=== PATIENT | female | born 1975 | race American Indian/Alaskan Native ===

== ENCOUNTER 2017-06-14 13:58 | Inpatient (IN) | payer MEDICAID ==
[2017-06-14 15:38] LABS: BUN/Creatinine Ratio 12; Blood Urea Nitrogen 6 mg/dL (7-17); Calcium 9.5 mg/dL (8.4-10.2); Hemolysis Index 34
--- NOTE | 2017-06-14 15:42 | Emergency Department Report ---
ED Neuro Deficit HPI - General Chief Complaint: Neuro Symptoms/Deficit Stated Complaint: LT SIDE NUMBNESS/HEADACHE Time Seen by Provider: 06/14/17 15:20 Source: patient Mode of arrival: Stretcher Limitations: No Limitations - History of Present Illness Initial Comments: Patient is a 41-year-old female presents to emergency room with left-sided facial numbness along with left sided arm and leg numbness and weakness that started at 1:30 PM. Patient also complains of a headache of 6 out of 10. Patient states is the numbness to her mouth is making it hard to speak. He denies chest pain or shortness of breath. Patient denies fever and chills. -: Sudden, hour(s) (started at 1:30 PM) Location: speech, left face, dysarthria, left arm, left leg Presenting Symptoms: Present: Weak/Paralyzed One Side, Sudden, Severe Headache, Facial Droop/Numbness Place: work Severity: severe Quality: weak, numb, tingling Improves With: none Worsens With: none On Anticoagulants: No Context: sudden onset Associated Symptoms: headaches, weakness Treatments Prior to Arrival: none - Related Data Allergies/Adverse Reactions: Allergies Allergy/AdvReac Type Severity Reaction Status Date / Time No Known Allergies Allergy Unverified 06/14/17 14:39 ED Review of Systems ROS: Stated complaint: LT SIDE NUMBNESS/HEADACHE Other details as noted in HPI Comment: All other systems reviewed and negative Constitutional: denies: chills, fever Eyes: denies: eye pain, eye discharge, vision change ENT: denies: ear pain, throat pain Respiratory: denies: cough, shortness of breath, wheezing Cardiovascular: denies: chest pain, palpitations Endocrine: no symptoms reported Gastrointestinal: denies: abdominal pain, nausea, diarrhea Genitourinary: denies: urgency, dysuria, discharge Musculoskeletal: denies: back pain, joint swelling, arthralgia Skin: denies: rash, lesions Neurological: headache, weakness, numbness, paresthesias Psychiatric: denies: anxiety, depression Hematological/Lymphatic: denies: easy bleeding, easy bruising ED Past Medical Hx - Past Medical History Previous Medical History?: Yes Additional medical history: Thrombocytopenia. unable to take aspirin - Surgical History Past Surgical History?: No - Family History Family history: no significant - Social History Smoking Status: Never Smoker Substance Use Type: None ED Neuro Physical Exam - General Limitations: No Limitations General appearance: alert, in no apparent distress Suspected Stroke: Yes - Head Head exam: Present: atraumatic, normocephalic - Eye Eye exam: Present: normal appearance, PERRL, EOMI Pupils: Present: normal accommodation - ENT ENT exam: Present: normal exam, mucous membranes moist - Neck Neck exam: Present: normal inspection - Respiratory Respiratory exam: Present: normal lung sounds bilaterally. Absent: respiratory distress - Cardiovascular Cardiovascular Exam: Present: regular rate, normal rhythm. Absent: systolic murmur, diastolic murmur, rubs, gallop - GI/Abdominal GI/Abdominal exam: Present: soft, normal bowel sounds - Extremities Exam Extremities exam: Present: normal inspection, other (left-sided weakness noted with arms and legs) - Back Exam Back exam: Present: normal inspection - Neurological Exam Neurological exam: Present: alert, oriented X3, CN II-XII intact, reflexes normal - NIHSS Assessment Interval: Baseline 1a. Level of Consciousness: alert 1b. LOC Questions: answers correctly 1c. LOC Commands: performs tasks correctly 2. Best Gaze: normal 3. Visual: no visual loss 4. Facial Palsy: normal symmetrical movement 5b. Motor Arm Right: no drift 5a. Motor Arm Left: no drift 6a. Motor Leg Left: drift 6b. Motor Leg Right: no drift 7. Limb Ataxia: absent 8. Sensory: normal 9. Best Language: no aphasia 10. Dysarthria: mild/moderate dysarthria 11. Extinction/Inattention: no abnormality Total Score: 2 Stroke Severity: Minor Stroke - Psychiatric Psychiatric exam: Present: normal affect, normal mood - Skin Skin exam: Present: warm, dry, intact, normal color. Absent: rash ED Course Vital Signs 06/14/17 06/14/17 06/14/17 14:12 14:20 14:59 Temperature 98.3 F 98.6 F Pulse Rate 89 87 Respiratory 18 18 Rate Blood Pressure 129/83 129/83 Blood Pressure [Left] O2 Sat by Pulse 100 100 Oximetry 06/14/17 06/14/17 06/14/17 15:02 15:05 16:07 Temperature 98.9 F Pulse Rate 80 65 Respiratory 19 19 17 Rate Blood Pressure Blood Pressure 157/93 [Left] O2 Sat by Pulse 99 99 98 Oximetry 02/23/18 02/23/18 17:00 17:23 Temperature Pulse Rate 78 Respiratory 13 Rate Blood Pressure 150/94 111/74 Blood Pressure [Left] O2 Sat by Pulse 96 Oximetry - Reevaluation(s) Reevaluation #1: Reach neurologist consulted. Dr. Mcgee called back with recommendations of a stroke workup in the hospital but believes it is most likely a complex migraine. 06/14/17 17:25 - Lab Data Result diagrams: 06/14/17 14:53 06/14/17 14:53 Lab Results 06/14/17 06/14/17 06/14/17 Range/Units 14:53 14:53 14:53 WBC 5.1 (4.5-11.0) K/mm3 RBC 4.82 (3.65-5.03) M/mm3 Hgb 13.5 (10.1-14.3) gm/dl Hct 40.7 (30.3-42.9) % MCV 84 (79-97) fl MCH 28 (28-32) pg MCHC 33 (30-34) % RDW 13.4 (13.2-15.2) % Plt Count 96 L (140-440) K/mm3 Lymph % (Auto) 38.1 H (13.4-35.0) % [place] % (Auto) 7.3 (0.0-7.3) % Eos % (Auto) 2.4 (0.0-4.3) % Baso % (Auto) 0.5 (0.0-1.8) % Lymph # 2.0 (1.2-5.4) K/mm3 [place] # 0.4 (0.0-0.8) K/mm3 Eos # 0.1 (0.0-0.4) K/mm3 Baso # 0.0 (0.0-0.1) K/mm3 Seg Neutrophils % 51.7 (40.0-70.0) % Seg Neutrophils # 2.7 (1.8-7.7) K/mm3 PT 11.9 L (12.2-14.9) Sec. INR 0.84 L (0.87-1.13) APTT 33.7 (24.2-36.6) Sec. Thrombin Time (15.1-19.6) Sec. Sodium 141 (137-145) mmol/L Potassium 3.5 L (3.6-5.0) mmol/L Chloride 102.8 (98-107) mmol/L Carbon Dioxide 24 (22-30) mmol/L Anion Gap 18 mmol/L BUN 6 L (7-17) mg/dL Creatinine 0.5 L (0.7-1.2) mg/dL Estimated GFR > 60 ml/min BUN/Creatinine Ratio 12 % Glucose 114 H (65-100) mg/dL POC Glucose (70-105) Calcium 9.5 (8.4-10.2) mg/dL Troponin T < 0.010 (0.00-0.029) ng/mL 06/14/17 06/14/17 Range/Units 14:53 15:31 WBC (4.5-11.0) K/mm3 RBC (3.65-5.03) M/mm3 Hgb (10.1-14.3) gm/dl Hct (30.3-42.9) % MCV (79-97) fl MCH (28-32) pg MCHC (30-34) % RDW (13.2-15.2) % Plt Count (140-440) K/mm3 Lymph % (Auto) (13.4-35.0) % [place] % (Auto) (0.0-7.3) % Eos % (Auto) (0.0-4.3) % Baso % (Auto) (0.0-1.8) % Lymph # (1.2-5.4) K/mm3 [place] # (0.0-0.8) K/mm3 Eos # (0.0-0.4) K/mm3 Baso # (0.0-0.1) K/mm3 Seg Neutrophils % (40.0-70.0) % Seg Neutrophils # (1.8-7.7) K/mm3 PT (12.2-14.9) Sec. INR (0.87-1.13) APTT (24.2-36.6) Sec. Thrombin Time 16.0 (15.1-19.6) Sec. Sodium (137-145) mmol/L Potassium (3.6-5.0) mmol/L Chloride (98-107) mmol/L Carbon Dioxide (22-30) mmol/L Anion Gap mmol/L BUN (7-17) mg/dL Creatinine (0.7-1.2) mg/dL Estimated GFR ml/min BUN/Creatinine Ratio % Glucose (65-100) mg/dL POC Glucose 101 (70-105) Calcium (8.4-10.2) mg/dL Troponin T (0.00-0.029) ng/mL - EKG Data -: EKG Interpreted by Me EKG shows normal: sinus rhythm, axis, intervals, QRS complexes, ST-T waves Rate: normal Interpretation: no acute changes - Radiology Data Radiology results: report reviewed No acute findings on head CT - Differential Diagnosis cva. electrolyte imbalance. weakness. numbness. Migraine Critical Care Time: Yes Critical care attestation.: If time is entered above; I have spent that time in minutes in the direct care of this critically ill patient, excluding procedure time. Critical Care Time: 45 minutes spent for critical care time ED Disposition Clinical Impression: Left facial numbness, Left-sided weakness, Headache Disposition: OP ADMIT IP TO THIS HOSP Is pt being admited?: Yes Does the pt Need Aspirin: No Condition: Serious Referrals: PRIMARY CARE, [Primary Care Provider] - 3-5 Days Time of Disposition: 17:26
[2017-06-14 15:55] LABS: Basophils % (Auto) 0.5 % (0.0-1.8); Eosinophils # (Auto) 0.1 K/mm3 (0.0-0.4); Eosinophils % (Auto) 2.4 % (0.0-4.3); Hematocrit 40.7 % (30.3-42.9); Hemoglobin 13.5 gm/dl (10.1-14.3); Lymphocytes % (Auto) 38.1 % (13.4-35.0); Mean Corpuscular HGB Conc 33 % (30-34); Mean Corpuscular Hemoglobin 28 pg (28-32); Mean Corpuscular Volume 84 fl (79-97); Monocytes # (Auto) 0.4 K/mm3 (0.0-0.8); Monocytes % (Auto) 7.3 % (0.0-7.3); Red Blood Count 4.82 M/mm3 (3.65-5.03); Red Cell Distribution Width 13.4 % (13.2-15.2)
[2017-06-14 16:01] LABS: INR 0.84 (0.87-1.13)
[2017-06-14 16:02] LABS: Partial Thromboplastin Time 33.7 Sec. (24.2-36.6)
--- NOTE | 2017-06-14 16:03 | Cat Scan Report ---
FINAL REPORT PROCEDURE: CT HEAD/BRAIN WO CON TECHNIQUE: Computerized tomography of the head was performed without contrast material. HISTORY: neuro deficits COMPARISON: No prior studies are available for comparison. FINDINGS: Brain: Brain density appears normal. No evidence of intracranial hemorrhage. No parenchymal hemorrhage, mass lesions or mass effect are seen. No abnormal extraxial fluid collects or masses are seen. Ventricles: Ventricles are normal size and are midline. Bone Windows: No evidence of skull fracture. Paranasal sinuses: There is opacification of 1 of the mid right ethmoid air cells. Visualized paranasal sinuses otherwise are clear. Mastoid air cells: Clear IMPRESSION: Negative unenhanced CT scan of the brain. Minimal paranasal sinus disease as described.
[2017-06-14 16:42] LABS: Platelet Count 96 K/mm3 (140-440)
[2017-06-14] MEDS ORDERED: DILAUDID IV ONE (17:49)
[2017-06-14] MEDS ORDERED: ZOFRAN IV ONE (17:49)
[2017-06-14] MEDS ORDERED: ZOFRAN ONE (17:51)
[2017-06-14] MEDS ORDERED: PHENERGAN PR PRN (18:27)
[2017-06-14] MEDS ORDERED: MILK OF MAGNESIA PO PRN (18:27)
[2017-06-14] MEDS ORDERED: DULCOLAX PR PRN (18:27)
[2017-06-14] MEDS ORDERED: ZOFRAN IV PRN (18:27)
[2017-06-14] MEDS ORDERED: SODIUM CHLORIDE FLUSH SYRINGE 10 ML IV PRN (18:27)
--- NOTE | 2017-06-14 18:27 | History and Physical Report ---
History of Present Illness Chief complaint: I feel numb, and im hurting History of present illness: 41 YO Female with Obesity, Thrombocytopenia presents to ED for evaluation. Pt states that she experienced acute onset left-sided facial numbness, slurred speech, work finding difficulty, as well as left sided arm and leg numbness and weakness. Pt states that symptoms began at 1330 hrs and have been persistent since that time. Patient also complains of a headache of 6 out of 10. Patient denies fever and chills, CP, Palpitations, NVD, Trauma, Falls, Syncope, Prolonged travel/immobility, Individual/family history of DVT/PE/Bleeding Disorders, Productive cough, Skin rash, blurred vision, known ill contacts, or recent foreign travel. Pt seen and evaluated in ED and found to have Left sided neurologic deficit. Pt admitted to telemetry, and treated IAW stroke protocol. Pt complains of pain out of proportion to exam and interview. Past History Past Medical History: other (Obesity, thrombocytopenia) Past Surgical History: No surgical history, Other (reviewed) Social history: , lives with family. denies: smoking, alcohol abuse, prescription drug abuse Family history: hypertension Medications and Allergies Allergies Allergy/AdvReac Type Severity Reaction Status Date / Time No Known Allergies Allergy Unverified 06/14/17 14:39 Review of Systems Constitutional: no weight loss, no weight gain, no fever, no chills Ears, nose, mouth and throat: no ear pain, no ear discharge, no tinnitis, no decreased hearing, no nose pain, no nasal congestion Breasts: no change in shape, no swelling, no mass, no pain Cardiovascular: no chest pain, no orthopnea, no palpitations, no rapid/ irregular heart beat, no edema, no syncope Respiratory: no cough, no cough with sputum, no excessive sputum, no hemoptysis , no shortness of breath Gastrointestinal: no abdominal pain, no nausea, no vomiting, no constipation, no change in bowel habits Genitourinary Female: no dysmenorrhea, no pelvic pain, no flank pain, no menorrhagia, no dysuria Rectal: no pain, no incontinence, no bleeding Musculoskeletal: no neck stiffness, no neck pain, no shooting arm pain, no arm numbness/tingling, no low back pain Integumentary: no rash, no pruritis, no redness, no sores, no wounds, no jaundice Neurological: weakness, numbness, ataxia, headaches, gait dysfunction Psychiatric: no anxiety, no memory loss, no change in sleep habits, no sleep disturbances, no insomnia, no hypersomnia Endocrine: no cold intolerance, no heat intolerance, no polyphagia, no excessive thirst, no polydipsia, no polyuria, no nocturia Hematologic/Lymphatic: no easy bruising, no easy bleeding, no lymphadenopathy, no lymphedema Allergic/Immunologic: no urticaria, no allergic rhinitis, no wheezing, no anaphylaxis, no angioedema Exam - Constitutional Vitals: Temp Pulse Resp BP Pulse Ox 98.9 F 89 12 131/94 97 06/14/17 15:02 06/14/17 18:00 06/14/17 18:00 06/14/17 18:00 06/14/17 18:00 General appearance: Present: mild distress - EENT Eyes: Present: PERRL ENT: hearing intact, clear oral mucosa - Neck Neck: Present: supple, normal ROM - Respiratory Respiratory effort: normal Respiratory: bilateral: CTA - Cardiovascular Heart Sounds: Present: S1 & S2. Absent: rub, click - Extremities Extremities: pulses symmetrical, No edema Peripheral Pulses: within normal limits - Abdominal General gastrointestinal: Present: soft, non-tender, non-distended, normal bowel sounds Female genitourinary: Present: normal - Integumentary Integumentary: Present: clear, warm, dry - Musculoskeletal Musculoskeletal: left sided weakness - Psychiatric Psychiatric: appropriate mood/affect, intact judgment & insight, depressed - Neurologic Neurologic: CNII-XII intact, moves all extremities Results - Labs CBC & Chem 7: 06/14/17 14:53 06/14/17 14:53 Labs: Abnormal lab results 06/14/17 06/14/17 06/14/17 Range/Units 14:53 14:53 14:53 Plt Count 96 L (140-440) K/mm3 Lymph % (Auto) 38.1 H (13.4-35.0) % PT 11.9 L (12.2-14.9) Sec. INR 0.84 L (0.87-1.13) Potassium 3.5 L (3.6-5.0) mmol/L BUN 6 L (7-17) mg/dL Creatinine 0.5 L (0.7-1.2) mg/dL Glucose 114 H (65-100) mg/dL Assessment and Plan - Patient Problems (1) CVA (cerebral vascular accident) Current Visit: Yes Status: Suspected Qualifiers: Precerebral and cerebral artery: middle cerebral artery Laterality of affected vessel: left Plan to address problem: Stroke Protocol: CT Head, MRI Brain, MRA Brain, MRI Thoracic Spine, Neuro checks , Echo, carotid doppler, PT/OT/ Speech Therapy, antiplatelet therapy (2) Obesity Current Visit: Yes Status: Acute Qualifiers: Body mass index: BMI 45.0-49.9 Plan to address problem: Balanced diet, increased physical activity as discharge, low cholesterol diet (3) Thrombocytopenia Current Visit: Yes Status: Acute Plan to address problem: Repeat CBC, NO active bleeding at this time. (4) DVT prophylaxis Current Visit: Yes Status: Acute Plan to address problem: SCD to BLE, while in bed.
[2017-06-14] MEDS: TYLENOL PO PRN (20:32)
[2017-06-14] MEDS: REGLAN PO PRN (20:33)
[2017-06-15] MEDS: TYLENOL PO PRN (05:43)
[2017-06-15 06:07] LABS: Chol/HDL Ratio 4.95 %
[2017-06-15] MEDS ORDERED: PERCOCET 5/325 ONE (12:28)
[2017-06-15] MEDS ORDERED: PERCOCET 5/325 PO ONE (12:30)
--- NOTE | 2017-06-15 12:42 | Magnetic Resonance Report ---
MRI OF THE BRAIN WITHOUT CONTRAST: HISTORY: Stroke PROCEDURE: Multiplanar, multisequence MR imaging of the brain without IV contrast was performed. FINDINGS: A 0.8 cm focus of diffusion restriction is identified in the right lateral thalamus on diffusion image 17. No other areas of diffusion restriction are identified. No evidence for hemorrhage, mass or mass effect. The remaining brain parenchyma is within normal limits on all sequences. The calles-white interface is well defined. No evidence for a chronic infarct or extra-axial fluid collection The midline structures are central. The basal cisterns are patent. Normal ventricular size. The orbital cavities and sella turcica demonstrate no abnormality. The visualized paranasal sinuses and mastoid air cells are well aerated. IMPRESSION: 0.8 cm subacute lacunar infarct in the right thalamus.
--- NOTE | 2017-06-15 12:43 | Magnetic Resonance Report ---
MRA HEAD WITHOUT CONTRAST HISTORY: Stroke. [id number] imaging with MIP reformations of the jena of Seth is submitted. The arteries appear widely patent and free of hemodynamically significant stenosis, aneurysm or dissection. IMPRESSION: Unremarkable MRA head.
--- NOTE | 2017-06-15 14:20 | Progress Note ---
Assessment and Plan // Right pontine CVA (cerebral vascular accident) followed Stroke Protocol: CT Head, MRI Brain, MRA Brain, MRI Thoracic Spine, Neuro checks, Echo, carotid doppler, PT/OT/ Speech Therapy, antiplatelet therapy low dose. Consult neurology //Obesity Balanced diet, increased physical activity as discharge, low cholesterol diet //Thrombocytopenia Repeat CBC, NO active bleeding at this time. // migraine headache start on fioricet // DVT prophylaxis SCD to BLE, while in bed. Physical exam: General appearance: Present: mild distress - EENT Eyes: Present: PERRL ENT: hearing intact, clear oral mucosa - Neck Neck: Present: supple, normal ROM - Respiratory Respiratory effort: normal Respiratory: bilateral: CTA - Cardiovascular Heart Sounds: Present: S1 & S2. Absent: rub, click - Extremities Extremities: pulses symmetrical, No edema Peripheral Pulses: within normal limits - Abdominal General gastrointestinal: Present: soft, non-tender, non-distended, normal bowel sounds Female genitourinary: Present: normal - Integumentary Integumentary: Present: clear, warm, dry - Musculoskeletal Musculoskeletal: left sided numbness and weakness - Psychiatric Psychiatric: appropriate mood/affect, intact judgment & insight, depressed - Neurologic Neurologic: CNII-XII intact, moves all extremities Subjective Date of service: 06/15/17 Interval history: Pt seen and examined c/o severe headache and leftsided weakness Objective - Constitutional Vitals: Vital Signs - 12hr 06/15/17 06/15/17 06/15/17 04:12 05:43 05:45 Temperature 98.4 F Pulse Rate 67 98 H Respiratory 8 L 18 Rate Blood Pressure 130/87 O2 Sat by Pulse 98 Oximetry 06/15/17 08:09 Temperature 98.3 F Pulse Rate 69 Respiratory 18 Rate Blood Pressure 108/73 O2 Sat by Pulse 97 Oximetry - Labs CBC & Chem 7: 06/14/17 14:53 06/14/17 14:53 Labs: Abnormal lab results 06/14/17 06/14/17 06/14/17 Range/Units 14:53 14:53 14:53 Plt Count 96 L (140-440) K/mm3 Lymph % (Auto) 38.1 H (13.4-35.0) % PT 11.9 L (12.2-14.9) Sec. INR 0.84 L (0.87-1.13) Potassium 3.5 L (3.6-5.0) mmol/L BUN 6 L (7-17) mg/dL Creatinine 0.5 L (0.7-1.2) mg/dL Glucose 114 H (65-100) mg/dL LDL Cholesterol Direct (50-130) mg/dL 06/15/17 Range/Units 05:18 Plt Count (140-440) K/mm3 Lymph % (Auto) (13.4-35.0) % PT (12.2-14.9) Sec. INR (0.87-1.13) Potassium (3.6-5.0) mmol/L BUN (7-17) mg/dL Creatinine (0.7-1.2) mg/dL Glucose (65-100) mg/dL LDL Cholesterol Direct 138 H (50-130) mg/dL
[2017-06-15] MEDS ORDERED: FIORICET PO PRN (14:21)
[2017-06-15] MEDS ORDERED: DILAUDID IV PRN (14:24)
[2017-06-15] MEDS ORDERED: ECOTRIN PO SCH (15:00)
[2017-06-15] MEDS: REGLAN PO PRN (19:30)
[2017-06-15] MEDS: PERCOCET 5/325 PO PRN (19:58)
[2017-06-15] MEDS ORDERED: XANAX PO ONE (23:00)
[2017-06-15] MEDS ORDERED: BENADRYL PO ONE (23:00)
[2017-06-16] MEDS: PERCOCET 5/325 PO PRN (10:00)
[2017-06-16] MEDS: BABY ASPIRIN PO SCH (10:09)
[2017-06-16] MEDS ORDERED: BENADRYL PO PRN ×3 (11:12→18:24)
--- NOTE | 2017-06-16 11:47 | Consultation ---
HISTORY OF PRESENT ILLNESS: This is a 41-year-old black female that presents to [facility]. 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 She apparently had the onset of severe headaches, left side, associated with numbness and weakness and intense paresthesias in the left side of the face associated with severe headache. She has a long history of severe headaches, takes Fioricet, sees a neurologist for this. She has not recently been taking her amlodipine or taking her Fioricet. She has no history of any allergies. SOCIAL HISTORY: Works as a teacher. Does not smoke, does not drink. PHYSICAL EXAMINATION: VITAL SIGNS: Blood pressure 114/70, pulse rate 86, respirations 18. NEUROLOGIC: Cranial nerves II through XII are intact. Extraocular movements are full. Pupils were equal, reactive to light. Motor and sensory examination is otherwise unremarkable. No drift to the extremities is present. No tremors, no asterixis, no focal motor or rigidity or weakness is present. IMPRESSION: This patient has complicated migraine in association with hypertension. Apparently at the facility where she works, the nurse checked, her blood pressure was 150/90. She was not taking her amlodipine prior to admission. On presentation, she had intense weakness, numbness on the left side, very suggestive of thalamic stroke given the long period of time of the persistence even after the headache was present. She obviously has too complicated processes, intractable migraine and also hypertension. Would recommend treatment of both. I did recommend the patient have a magnesium blood level checked. Check MRI, get echocardiogram. Recommend antiplatelet agent, aspirin, Plavix, stroke risk reduction such as lipid reduction, hypertension control. Better control of migraine is probably optimal with Neurontin and magnesium. I will follow the patient with you. JOB# [id number] LIZANDRO/NTS
[2017-06-16] MEDS: NORVASC PO SCH (12:25)
[2017-06-16] MEDS: MAG-OX PO SCH ×2 (13:55→22:40)
[2017-06-16] MEDS: NEURONTIN PO SCH ×2 (13:55→22:41)
--- NOTE | 2017-06-16 14:08 | Progress Note ---
Assessment and Plan // Right pontine CVA (cerebral vascular accident) followed Stroke Protocol: CT Head, MRI Brain, MRA Brain, MRI Thoracic Spine, Neuro checks, Echo, carotid doppler, PT/OT/ Speech Therapy, antiplatelet therapy low dose. Consulted neurology PT recommended AMINTA //Obesity Balanced diet, increased physical activity as discharge, low cholesterol diet //Thrombocytopenia Repeat CBC, NO active bleeding at this time. // migraine headache cont on fioricet neurology recommended to start on amlodipine, neurontin and Mgoxide // peripheral neuropathy will check b12, cont on gabapentin // DVT prophylaxis SCD to BLE, while in bed. Disposition: need AMINTA Physical exam: General appearance: Present: mild distress - EENT Eyes: Present: PERRL ENT: hearing intact, clear oral mucosa - Neck Neck: Present: supple, normal ROM - Respiratory Respiratory effort: normal Respiratory: bilateral: CTA - Cardiovascular Heart Sounds: Present: S1 & S2. Absent: rub, click - Extremities Extremities: pulses symmetrical, No edema Peripheral Pulses: within normal limits - Abdominal General gastrointestinal: Present: soft, non-tender, non-distended, normal bowel sounds Female genitourinary: Present: normal - Integumentary Integumentary: Present: clear, warm, dry - Musculoskeletal Musculoskeletal: left sided numbness and weakness - Psychiatric Psychiatric: appropriate mood/affect, intact judgment & insight, depressed - Neurologic Neurologic: CNII-XII intact, moves all extremities Subjective Date of service: 06/16/17 Interval history: Pt seen and examined states headache improved but she has pain on her left side upper and lower extremity, describes as shooting pain Objective - Constitutional Vitals: Vital Signs - 12hr 06/16/17 06/16/17 06/16/17 04:39 05:48 07:00 Temperature 98.2 F Pulse Rate 70 69 73 Pulse Rate [ From Monitor] Respiratory 18 Rate Blood Pressure 121/77 Blood Pressure 121/77 [Left] O2 Sat by Pulse 97 98 Oximetry 06/16/17 06/16/17 06/16/17 08:02 10:00 12:29 Temperature 98.9 F Pulse Rate 70 88 Pulse Rate [ 70 From Monitor] Respiratory 18 18 Rate Blood Pressure 134/89 Blood Pressure 126/91 [Left] O2 Sat by Pulse 99 99 Oximetry - Labs CBC & Chem 7: 06/14/17 14:53 06/14/17 14:53
[2017-06-16] MEDS ORDERED: PERCOCET 5/325 PO PRN (18:23)
[2017-06-17] MEDS: NEURONTIN PO SCH ×2 (05:57→14:46)
[2017-06-17 09:38] LABS: Hematocrit 41.4 % (30.3-42.9); Hemoglobin 13.6 gm/dl (10.1-14.3); Mean Corpuscular HGB Conc 33 % (30-34); Mean Corpuscular Hemoglobin 28 pg (28-32); Mean Corpuscular Volume 85 fl (79-97); Red Blood Count 4.87 M/mm3 (3.65-5.03); Red Cell Distribution Width 13.3 % (13.2-15.2)
--- NOTE | 2017-06-17 10:01 | Consultation ---
History of Present Illness Consult date: 06/17/17 History of present illness: see my fully dictated note there is clear infarct in the right thalamus likely causation is the HTN advise therapy magnesium and neurontin spoke with Dr. Shi yesterday Thanks for consult Past History Past Medical History: other (Obesity, thrombocytopenia) Past Surgical History: No surgical history, Other (reviewed) Social history: , lives with family. denies: smoking, alcohol abuse, prescription drug abuse Family history: hypertension Medications and Allergies Allergies Allergy/AdvReac Type Severity Reaction Status Date / Time No Known Allergies Allergy Unverified 06/14/17 14:39 Active Meds: Active Medications Acetaminophen (Tylenol) 650 mg PO Q4H PRN PRN Reason: Pain, Mild (1-3) Last Admin: 06/15/17 05:43 Dose: 650 mg Acetaminophen/Butalbital/Caffeine (Fioricet) 2 tab PO Q4H PRN PRN Reason: Headache Last Admin: 06/15/17 16:43 Dose: 2 tab Amlodipine Besylate (Norvasc) 5 mg PO QDAY [facility] Last Admin: 06/16/17 12:25 Dose: 5 mg Aspirin (Baby Aspirin) 81 mg PO QDAY [facility] Last Admin: 06/16/17 10:09 Dose: Not Given Atorvastatin Calcium (Lipitor) 40 mg PO QHS [facility] Last Admin: 06/16/17 22:41 Dose: 40 mg Bisacodyl (Dulcolax) 10 mg MT QDAY PRN PRN Reason: Constipation Diphenhydramine HCl (Benadryl) 25 mg PO Q8H PRN PRN Reason: Itching Last Admin: 06/16/17 22:48 Dose: 25 mg Gabapentin (Neurontin) 300 mg PO Q8HR [facility] Last Admin: 06/17/17 05:57 Dose: 300 mg Magnesium Oxide (Mag-Ox) 400 mg PO TID [facility] Last Admin: 06/16/17 22:40 Dose: 400 mg Metoclopramide HCl (Reglan) 10 mg PO Q6H PRN PRN Reason: Nausea And Vomiting Last Admin: 06/15/17 19:30 Dose: 10 mg Ondansetron HCl (Zofran) 4 mg IV Q8H PRN PRN Reason: N/V unrelieved by Reglan Oxycodone/Acetaminophen (Percocet 5/325) 1 tab PO Q6H PRN PRN Reason: Pain, Moderate (4-6) Promethazine HCl (Phenergan) 25 mg MT Q6H PRN PRN Reason: Nausea And Vomiting Sodium Chloride (Sodium Chloride Flush Syringe 10 Ml) 10 ml IV PRN PRN PRN Reason: LINE FLUSH Stop: 06/17/17 18:26 Physical Examination - Vital Signs Vital Signs: Vital Signs Pulse Resp BP Pulse Ox 89 18 129/83 100 06/14/17 14:12 06/14/17 14:12 06/14/17 14:12 06/14/17 14:12 Results - Laboratory Findings CBC and BMP: 06/17/17 09:09 06/14/17 14:53 Abnormal Lab Findings: Abnormal Labs 06/14/17 06/14/17 06/14/17 14:53 14:53 14:53 Plt Count 96 L Lymph % (Auto) 38.1 H PT 11.9 L INR 0.84 L Potassium 3.5 L BUN 6 L Creatinine 0.5 L Glucose 114 H LDL Cholesterol Direct 06/15/17 05:18 Plt Count Lymph % (Auto) PT INR Potassium BUN Creatinine Glucose LDL Cholesterol Direct 138 H
[2017-06-17 11:13] LABS: Platelet Count 106 K/mm3 (140-440)
[2017-06-17] MEDS: BABY ASPIRIN PO SCH (11:50)
[2017-06-17] MEDS: NORVASC PO SCH (11:50)
[2017-06-17] MEDS: MAG-OX PO SCH ×2 (11:50→14:46)
[2017-06-17] MEDS ORDERED: NEURONTIN PO SCH (16:16)
--- NOTE | 2017-06-17 16:22 | Progress Note ---
Assessment and Plan Assessment and plan: // Right pontine CVA (cerebral vascular accident) followed Stroke Protocol: CT Head, MRI Brain, MRA Brain, MRI Thoracic Spine, Neuro checks, Echo, carotid doppler, PT/OT/ Speech Therapy, antiplatelet therapy low dose. Neurology following PT recommended AMINTA //Thrombocytopenia Repeat CBC, NO active bleeding at this time. // migraine headache cont on fioricet neurology recommended to start on amlodipine, neurontin and Mgoxide, continue // peripheral neuropathy will check b12, cont on gabapentin // DVT prophylaxis SCD to BLE, while in bed History Interval history: Patient seen and examined. Complains of L sided weakness, pain and burning. She denies CP, SOB, NV. Labs and nursing notes reviewed Hospitalist Physical - Constitutional Vitals: Temp Pulse Resp BP Pulse Ox 97.6 F 105 H 18 122/93 96 06/17/17 09:05 06/17/17 09:05 06/17/17 09:05 06/17/17 09:05 06/17/17 09:05 General appearance: Present: no acute distress, well-nourished - EENT Eyes: Present: PERRL, EOM intact ENT: hearing intact, clear oral mucosa - Neck Neck: Present: supple, normal ROM - Respiratory Respiratory effort: normal Respiratory: bilateral: CTA - Cardiovascular Rhythm: regular Heart Sounds: Present: S1 & S2 - Extremities Extremities: no ischemia, No edema - Abdominal General gastrointestinal: soft, non-tender, non-distended - Integumentary Integumentary: Present: clear, warm, dry - Psychiatric Psychiatric: appropriate mood/affect, cooperative - Neurologic Neurologic: CNII-XII intact, moves all extremities - Allied Health Allied health notes reviewed: nursing Results - Labs CBC & Chem 7: 06/17/17 09:09 06/14/17 14:53 Labs: Laboratory Last Values WBC 5.0 K/mm3 (4.5-11.0) 06/17/17 09:09 RBC 4.87 M/mm3 (3.65-5.03) 06/17/17 09:09 Hgb 13.6 gm/dl (10.1-14.3) 06/17/17 09:09 Hct 41.4 % (30.3-42.9) 06/17/17 09:09 MCV 85 fl (79-97) 06/17/17 09:09 MCH 28 pg (28-32) 06/17/17 09:09 MCHC 33 % (30-34) 06/17/17 09:09 RDW 13.3 % (13.2-15.2) 06/17/17 09:09 Plt Count 106 K/mm3 (140-440) L 06/17/17 09:09 Lymph % (Auto) 38.1 % (13.4-35.0) H 06/14/17 14:53 [place] % (Auto) 7.3 % (0.0-7.3) 06/14/17 14:53 Eos % (Auto) 2.4 % (0.0-4.3) 06/14/17 14:53 Baso % (Auto) 0.5 % (0.0-1.8) 06/14/17 14:53 Lymph # 2.0 K/mm3 (1.2-5.4) 06/14/17 14:53 [place] # 0.4 K/mm3 (0.0-0.8) 06/14/17 14:53 Eos # 0.1 K/mm3 (0.0-0.4) 06/14/17 14:53 Baso # 0.0 K/mm3 (0.0-0.1) 06/14/17 14:53 Seg Neutrophils % 51.7 % (40.0-70.0) 06/14/17 14:53 Seg Neutrophils # 2.7 K/mm3 (1.8-7.7) 06/14/17 14:53 PT 11.9 Sec. (12.2-14.9) L 06/14/17 14:53 INR 0.84 (0.87-1.13) L 06/14/17 14:53 APTT 33.7 Sec. (24.2-36.6) 06/14/17 14:53 Thrombin Time 16.0 Sec. (15.1-19.6) 06/14/17 14:53 Sodium 141 mmol/L (137-145) 06/14/17 14:53 Potassium 3.5 mmol/L (3.6-5.0) L 06/14/17 14:53 Chloride 102.8 mmol/L (98-107) 06/14/17 14:53 Carbon Dioxide 24 mmol/L (22-30) 06/14/17 14:53 Anion Gap 18 mmol/L 06/14/17 14:53 BUN 6 mg/dL (7-17) L 06/14/17 14:53 Creatinine 0.5 mg/dL (0.7-1.2) L 06/14/17 14:53 Estimated GFR > 60 ml/min 06/14/17 14:53 BUN/Creatinine Ratio 12 % 06/14/17 14:53 Glucose 114 mg/dL (65-100) H 06/14/17 14:53 POC Glucose 101 (70-105) 06/14/17 15:31 Calcium 9.5 mg/dL (8.4-10.2) 06/14/17 14:53 Troponin T < 0.010 ng/mL (0.00-0.029) 06/14/17 14:53 Triglycerides 101 mg/dL (2-149) 06/15/17 05:18 Cholesterol 198 mg/dL (50-199) 06/15/17 05:18 LDL Cholesterol Direct 138 mg/dL (50-130) H 06/15/17 05:18 HDL Cholesterol 40 mg/dL (40-59) 06/15/17 05:18 Cholesterol/HDL Ratio 4.95 % 06/15/17 05:18 Vitamin B12 614.0 pg/mL (211-911) 06/17/17 09:09
--- NOTE | 2017-06-17 16:46 | Discharge Summary ---
Providers - Providers Date of Admission: 06/14/17 18:27 Date of discharge: 06/17/17 Attending physician: TAYA KAISER 06/14/17 18:28 Occupational Therapy Evaluate and Treat [CONS] Routine Comment: Reason For Exam: Neuro deficits Physical Therapy Evaluation and Treat [CONS] Routine Comment: Reason For Exam: Neuro deficits 06/15/17 14:24 Consult to Physician [CONS] Routine Consulting Provider: DARCI DAY Reason For Exam: cv and migraine Place consult to:: Barb Notified:: Maryse RN Phone number called:: Was contact made?: Yes If yes, spoke with:: Wallace-[facility]wering service Time called:: 16:42 06/16/17 15:12 Consult to Physician [CONS] Routine Consulting Provider: APARNA WEINSTEIN Reason For Exam: low platelets with CVA Place consult to:: Dr Weinstein Notified:: Anushka RN Phone number called:: Was contact made?: Yes If yes, spoke with:: Heather-answering service Time called:: 17:07 06/17/17 10:28 Speech Therapy Evaluation and Treat [CONS] Routine Reason For Exam: swallow eval 06/17/17 16:18 Consult to Case Management [CONS] Routine Services Needed at Discharge: Other Comment:: [facility]TA placement Primary care physician: ASSISTANT MECHANIC Hospitalization Condition: Serious Hospital course: Discharge diagnosis and management: // Right pontine CVA (cerebral vascular accident) followed Stroke Protocol: CT Head, MRI Brain, MRA Brain, MRI Thoracic Spine, Neuro checks, Echo, carotid doppler, PT/OT/ Speech Therapy, antiplatelet therapy low dose. Consulted neurology PT recommended PT //Obesity Balanced diet, increased physical activity as discharge, low cholesterol diet //Thrombocytopenia Repeated CBC, NO active bleeding at this time. Platelet count stable recommended to follow up with hematology outpt for further work up // migraine headache cont on fioricet neurology recommended to start on amlodipine, neurontin and Mgoxide // peripheral neuropathy Normal b12, cont on gabapentin // DVT prophylaxis SCD to BLE, while in bed. Disposition: need PT Physical exam: General appearance: Present: mild distress - EENT Eyes: Present: PERRL ENT: hearing intact, clear oral mucosa - Neck Neck: Present: supple, normal ROM - Respiratory Respiratory effort: normal Respiratory: bilateral: CTA - Cardiovascular Heart Sounds: Present: S1 & S2. Absent: rub, click - Extremities Extremities: pulses symmetrical, No edema Peripheral Pulses: within normal limits - Abdominal General gastrointestinal: Present: soft, non-tender, non-distended, normal bowel sounds Female genitourinary: Present: normal - Integumentary Integumentary: Present: clear, warm, dry - Musculoskeletal Musculoskeletal: left sided numbness and weakness - Psychiatric Psychiatric: appropriate mood/affect, intact judgment & insight, depressed - Neurologic Neurologic: CNII-XII intact, moves all extremities Disposition: DC/[place]-06 HOME UNDER [facility] Time spent for discharge: 32 minutes Core Measure Documentation - Palliative Care Palliative Care/ Comfort Measures: Not Applicable - Core Measures Any of the following diagnoses?: stroke - Stroke Discharge Requirements Statin for LDL = or >70 mg/dl on DC: Yes Anticoag for atrial fib/atrial flutter: No Antithrombotic for ischemic stroke: Yes Exam - Constitutional Vitals: Temp Pulse Resp BP Pulse Ox 97.6 F 105 H 18 122/93 96 06/17/17 09:05 06/17/17 09:05 06/17/17 09:05 06/17/17 09:05 06/17/17 09:05 Plan Activity: advance as tolerated, fall precautions Weight Bearing Status: Non-Weight Bearing Diet: low fat, low salt Special Instructions: physical therapy (with HH) Additional Instructions: F/u with dr Day in one week Follow up with: PRIMARY CARE, [Primary Care Provider] - 3-5 Days Forms: AMA Form Prescriptions: AtorvaSTATin [Lipitor] 40 mg PO QHS #30 tablet amLODIPine [Norvasc] 5 mg PO QDAY #30 tablet Aspirin [Aspirin BABY CHEW TAB] 81 mg PO QDAY #30 tab.chew Butalb/Acetamin/Caff 50-325-40 [Fioricet] 2 tab PO Q4H PRN #30 tablet PRN Reason: Headache Gabapentin [Neurontin] 300 mg PO Q8HR #90 capsule Magnesium Oxide [Mag-Ox] 400 mg PO TID #30 tablet
[2017-06-17 19:53] VITALS: BP 112/80
== END 2017-06-17 19:55 | disposition home health service (06) | DRG 65 ==
LOC: ED 13:58 → 4A 18:27
PROVIDERS: ADMIT Internal Medicine; ATTEND Internal Medicine
DX: I63.9 Cerebral infarction, unspecified (principal); G81.94 Hemiplegia, unspecified affecting left nondominant side; G43.909 Migraine, unspecified, not intractable, without status migrainosus; E66.9 Obesity, unspecified; Z68.20 Body mass index [BMI] 20.0-20.9, adult; Z82.49 Family history of ischemic heart disease and other diseases of the circulatory system; D69.6 Thrombocytopenia, unspecified; G62.9 Polyneuropathy, unspecified
CPT/HCPCS: 36415; 70450; 70544; 70551; 80048; 80061; 82607; 82962; 84484; 85025; 85027; 85610; 85670; 85730; 93005; 93010; 93306; 93880; A9270-GY; J1170; J2405

== ENCOUNTER 2020-12-21 10:05 | Outpatient (CLI) | payer OTHER, MEDICAID ==
--- NOTE | 2020-12-21 13:45 | Mammography Report ---
DIGITAL SCREENING MAMMOGRAM WITH CAD, 12/21/2020 CLINICAL INFORMATION / INDICATION: Routine screening mammography. SCREENING MAMMO Z12.31. Previous [facility] breast biopsy. TECHNIQUE: Digital bilateral 2D mammography was obtained in the craniocaudal and mediolateral obliqu e projections. This examination was interpreted with the benefit of Computer-Aided Detection analysis . COMPARISON: 12/21/19, 12/09/18 FINDINGS: Breast Density: The breasts are heterogeneously dense, which may obscure small masses. No dominant mass, suspicious calcifications, or architectural distortion in either breast. Right breast biopsy marker is unchanged. IMPRESSION: No mammographic evidence of malignancy. Follow up recommendation: Routine yearly BI-RADS Category 2: Benign. A "normal" or negative report should not discourage follow up or biopsy of a clinically significant f inding. A written summary of these findings will be mailed to the patient. The patient will be entered into a mammography reporting system which will generate a reminder letter for the patient's next appointmen t at the appropriate interval. The [employer] recommends yearly mammograms starting at age 40 and continuing as l alberto as a woman is in good health. Breast MRI is recommended for women with an approximate 20-25% or greater lifetime risk of breast cancer, including women with a strong family history of breast or ova jesus cancer or who have been treated for Hodgkin's disease. Signer Name: Keysha Sanchez MD Signed: 12/21/2020 1:41 PM Workstation Name: [id number]
== END 2020-12-21 10:06 | disposition home or self-care (01) ==
LOC: SPVWC 10:05
PROVIDERS: ATTEND Surgery
DX: Z12.31 Encounter for screening mammogram for malignant neoplasm of breast (principal)
CPT/HCPCS: 77067

== ENCOUNTER 2022-01-11 08:27 | Outpatient (CLI) | payer OTHER, MEDICAID ==
--- NOTE | 2022-01-12 16:20 | Mammography Report ---
DIGITAL SCREENING MAMMOGRAM WITH CAD, 01/11/2022 CLINICAL INFORMATION / INDICATION: Routine screening mammography. SCREENING MAMMO Z12.31 TECHNIQUE: Digital bilateral 2D mammography was obtained in the craniocaudal and mediolateral obliqu e projections. This examination was interpreted with the benefit of Computer-Aided Detection analysis . COMPARISON: Prior mammogram 12/21/2020 and 12/21/2019 FINDINGS: Breast Density: The breasts are heterogeneously dense, which may obscure small masses. No dominant mass, suspicious calcifications, or architectural distortion in either breast. There is a stable biopsy clip in the right breast. There has been no significant change compared with the prior examinations. IMPRESSION: No mammographic evidence of malignancy. Follow up recommendation: Routine yearly screening mammogram. BI-RADS Category 2: BENIGN. A "normal" or negative report should not discourage follow up or biopsy of a clinically significant f inding. A written summary of these findings will be mailed to the patient. The patient will be entered into a mammography reporting system which will generate a reminder letter for the patient's next appointmen t at the appropriate interval. The [employer] recommends yearly mammograms starting at age 40 and continuing as l alberto as a woman is in good health. Breast MRI is recommended for women with an approximate 20-25% or greater lifetime risk of breast cancer, including women with a strong family history of breast or ova jesus cancer or who have been treated for Hodgkin's disease. Signer Name: Carol Clancy MD Signed: 01/12/2022 4:15 PM Workstation Name: [id number]
== END 2022-01-11 08:28 | disposition home or self-care (01) ==
LOC: SPVWC 08:27
PROVIDERS: ATTEND Family Medicine
DX: Z12.31 Encounter for screening mammogram for malignant neoplasm of breast (principal)
CPT/HCPCS: 77067